=== PATIENT | male | born 1955 | race Hispanic/Latino ===

== ENCOUNTER → 2024-04-16 | Outpatient (CLI) | payer OTHER ==
[~2024-04-16] MED LIST: IOHEXOL-350 75 ML VIAL IV ONE
== END | disposition home or self-care (01) ==
LOC: RAH 10:09
PROVIDERS: ATTEND Internal Medicine
DX: K57.30 Diverticulosis of large intestine without perforation or abscess without bleeding (principal); R10.32 Left lower quadrant pain
CPT/HCPCS: 74177; Q9967

== ENCOUNTER → 2025-06-20 | Outpatient (CLI) | payer OTHER ==
--- NOTE | 2025-06-20 20:39 | HMCIMG ---
EXAM: XR Left Foot, 3 Views. CLINICAL HISTORY: Mass of left foot. COMPARISON: None provided. FINDINGS: BONES: Reduced bone density. Hypertrophy of the sesamoid bones adjacent to 1st metatarsal. No acute fracture or focal osseous lesion. JOINTS: Reduced joint space with mild subchondral sclerosis and osteophyte suggestive of degenerative changes at 1st metatarsophalangeal joint. Mild reduced joint space at 1st cuneonavicular joint. No dislocation. SOFT TISSUES: Soft tissue swelling around 1st metatarsophalangeal joint. Focal calcification likely vascular calcification in 1st web space. 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 * Hypertrophy of the sesamoid bones adjacent to 1st metatarsal along with associated soft tissue swelling of left foot. * Mild degenerative changes at the 1st cuneonavicular joint of left foot. /[place]
--- NOTE | 2025-06-20 20:40 | HMCIMG ---
EXAM: XR Left Shoulder, 2 View. CLINICAL HISTORY: Pain, Fall 3 weeks ago COMPARISON: None provided. FINDINGS: BONES: Osteopenia is present. There is an old healed fracture of the left 4th rib. No acute fracture or focal osseous lesion is identified in the visualized shoulder. JOINTS: No dislocation. The AC joint space is mildly prominent for age measuring 7.1 mm at mid joint. The lower ends of the clavicle and acromion are congruous, which may suggest a grade 1 AC joint injury. The acromiohumeral interval is reduced, measuring 3 mm, which may suggest a rotator cuff injury. SOFT TISSUES: The soft tissues are unremarkable. IMPRESSION: * Mildly prominent left AC joint space, however with congruent distal clavicle and acromion, which may suggest a grade 1 AC joint injury. * Reduced left acromiohumeral interval, which may suggest a rotator cuff injury. * Old healed fracture left 4th rib. /[place]
== END | disposition home or self-care (01) ==
LOC: RAH 12:49
PROVIDERS: ATTEND Internal Medicine
DX: M19.072 Primary osteoarthritis, left ankle and foot (principal); M85.812 Other specified disorders of bone density and structure, left shoulder; M19.012 Primary osteoarthritis, left shoulder; M25.475 Effusion, left foot
CPT/HCPCS: 73030; 73630